=== PATIENT | female | born 1960 | race Caucasian/White ===

== ENCOUNTER → 2020-01-16 | Outpatient (CLI) | payer OTHER | LOC: M.RAD 15:51 | DX: Z12.31 Encounter for screening mammogram for malignant neoplasm of breast (principal) ==

== ENCOUNTER → 2020-08-27 | Outpatient (CLI) | payer OTHER | LOC: M.RAD 14:02 | PROVIDERS: ATTEND Internal Medicine | DX: M77.51 Other enthesopathy of right foot and ankle (principal); M79.671 Pain in right foot; G89.29 Other chronic pain ==